=== PATIENT | male | born 1985 | race Two or more races ===

== ENCOUNTER 2022-12-30 19:15 | Emergency (ER) | payer MEDICAID, OTHER | END 2022-12-30 20:30 | disposition left against medical advice (07) | LOC: ER 19:15 | DX: R10.9 Unspecified abdominal pain (principal); Z53.21 Procedure and treatment not carried out due to patient leaving prior to being seen by health care provider ==

== ENCOUNTER 2022-12-30 20:59 | Emergency (ER) | payer MEDICAID, OTHER | END 2022-12-30 22:18 | disposition left against medical advice (07) | LOC: ER 20:59 | DX: R10.9 Unspecified abdominal pain (principal); Z53.21 Procedure and treatment not carried out due to patient leaving prior to being seen by health care provider ==